=== PATIENT | male | born 1950 ===

== ENCOUNTER 2020-05-07 15:00 | Outpatient (CLI) | payer OTHER | END 2020-05-07 15:20 | disposition home or self-care (01) | LOC: PPH VACUNA 15:00 | DX: Z23 Encounter for immunization (principal) ==

== ENCOUNTER 2020-05-28 23:13 | Outpatient (CLI) | payer OTHER | END 2020-05-28 23:14 | disposition home or self-care (01) | LOC: PPH VACUNA 23:13 | PROVIDERS: ATTEND Emergency Medicine Pediatric Emergency Medicine | DX: Z23 Encounter for immunization (principal) ==

== ENCOUNTER 2020-11-16 15:00 | Outpatient (CLI) | payer OTHER | END 2020-11-16 15:05 | disposition home or self-care (01) | LOC: PPH VACUNA 15:00 | PROVIDERS: ATTEND Emergency Medicine Pediatric Emergency Medicine | DX: Z23 Encounter for immunization (principal) ==

== ENCOUNTER 2021-06-15 08:00 | Outpatient (CLI) | payer OTHER | END 2021-06-15 08:30 | disposition home or self-care (01) | LOC: PPH VACUNA 08:00 | PROVIDERS: ATTEND Emergency Medicine Pediatric Emergency Medicine | DX: Z23 Encounter for immunization (principal) ==

== ENCOUNTER 2021-11-19 08:35 | Outpatient (CLI) | payer OTHER | END 2021-11-19 08:40 | disposition home or self-care (01) | LOC: PPH VACUNA 08:35 | PROVIDERS: ATTEND Emergency Medicine Pediatric Emergency Medicine | DX: Z23 Encounter for immunization (principal) ==